=== PATIENT | male | born 1985 | race Caucasian/White ===

== ENCOUNTER 2018-01-15 18:03 | Emergency (ER) | payer OTHER ==
[2018-01-15] MEDS: KETOROLAC 60 MG/2 ML VIAL (J1885) IM (19:42)
== END 2018-01-15 20:09 | disposition home or self-care (01) ==
LOC: M ED 18:03
DX: R07.89 Other chest pain (principal); Z79.899 Other long term (current) drug therapy
CPT/HCPCS: J1885